=== PATIENT | female | born 1945 | race Caucasian/White ===

== ENCOUNTER → 2024-01-12 14:30 | Outpatient (REF) | payer MEDICARE, BC, SELFPAY | LOC: WDC 14:30 | PROVIDERS: ATTENDING PHYSICIAN Obstetrics & Gynecology; FAMILY PHYSICIAN Family Medicine | DX: Z12.31 Encounter for screening mammogram for malignant neoplasm of breast (principal); Z78.0 Asymptomatic menopausal state | CPT/HCPCS: 77063; 77067; 77080 ==